=== PATIENT | male | born 1970 ===

== ENCOUNTER → 2016-11-23 16:45 | Outpatient (CLI) | payer BC ==
[2016-11-23 18:49] LABS: CHOL - HDL RATIO 4.8 ratio (2.3-4.9); LDL-HDL RATIO 2.1 ratio (1.5-3.5)
== END | disposition home or self-care (01) ==
LOC: D.LABREF 16:45
PROVIDERS: Internal Medicine Cardiovascular Disease
DX: E78.5 Hyperlipidemia, unspecified (principal)